=== PATIENT | male | born 1950 | race Caucasian/White ===

== ENCOUNTER 2021-09-27 12:02 | Day surgery (SDC) | payer MEDICARE, MEDICAID ==
[2021-09-21 16:01] LABS: BASOPHILS % (AUTO) 0.4 % (0-1); EOSINOPHILS # (AUTO) 0.2 X10'3 (0-0.9); EOSINOPHILS % (AUTO) 3.2 % (0-6); HEMATOCRIT 44.1 % (42.0-52.0); HEMOGLOBIN 15.2 g/dl (14.0-17.9); LYMPHOCYTES # (AUTO) 2.1 X10'3 (1.1-4.8); LYMPHOCYTES % (AUTO) 31.2 % (21-51); MEAN CORPUSCULAR HEMOGLOBIN 30.8 PG (27.0-31.0); MEAN CORPUSCULAR HGB CONC 34.4 g/dL (33.0-36.5); MEAN CORPUSCULAR VOLUME 89.4 FL (78-98); MEAN PLATELET VOLUME 8.8 FL (7.4-10.4); MONOCYTES # (AUTO) 0.6 X10'3 (0-0.9); MONOCYTES % (AUTO) 9.1 % (2-12); NEUTROPHILS # (AUTO) 3.8 X10'3 (1.8-7.7); NEUTROPHILS % (AUTO) 56.1 % (42-75); PLATELET COUNT 257 X10'3 (140-440); RED BLOOD COUNT 4.93 X10'6 (4.70-6.10); RED CELL DISTRIBUTION WIDTH 12.9 % (11.5-14.5); WHITE BLOOD COUNT 6.8 X10'3 (4.5-11.0)
[2021-09-21 16:12] LABS: ALBUMIN 3.6 G/DL (3.4-5.0); ANION GAP 9 (8-16); BLOOD UREA NITROGEN 25 MG/DL (7-18); BUN/CREATININE RATIO 22.5 (5.4-32.0); CALCIUM 8.8 MG/DL (8.5-10.1); CHLORIDE 108 MMOL/L (99-107); CREATININE 1.11 MG/DL (0.60-1.10); GLUCOSE 105 MG/DL (70-104); POTASSIUM 4.2 MMOL/L (3.5-5.1); SODIUM 143 MMOL/L (135-145); TOTAL CARBON DIOXIDE 26.4 MMOL/L (24-32); eGFR 65 ML/MIN
[2021-09-21 16:13] LABS: APTT 24 SECONDS (22-32)
[~2021-09-27] VITALS: Ht 177.8 cm; Wt 109.6 kg
[2021-09-27] MEDS ORDERED: LORazepam 0.5 MG tablet PO PRN (12:35)
[2021-09-27] MEDS ORDERED: normal saline 1,000 ML IV SCH (12:35)
[2021-09-27] MEDS ORDERED: diphenhydrAMINE 25mg capsule PO PRN (12:35)
[2021-09-27 12:47] VITALS: BP 135/88
[2021-09-27] MEDS ORDERED: ATOR80TA PO (13:17)
[2021-09-27] MEDS ORDERED: SILD100T PO (13:17)
[2021-09-27] MEDS ORDERED: CLOP75TA34 PO (13:17)
[2021-09-27] MEDS ORDERED: METO50TA7 PO (13:17)
[2021-09-27] MEDS ORDERED: ISOS120T13 PO (13:17)
[2021-09-27] MEDS ORDERED: NITR0.4T51 SL (13:17)
[2021-09-27] MEDS ORDERED: ASPI-1265 PO (13:17)
[2021-09-27] MEDS ORDERED: LISI5TAB22 PO (13:17)
[2021-09-27] MEDS ORDERED: LIDOcaine/PRILOcaine 5gm cream TP ONE (13:20)
[2021-09-27] MEDS ORDERED: verapamil 2.5 mg/ml inj IV ONE (13:33)
[2021-09-27] MEDS ORDERED: nitroGLYCERIN-Tridil 50MG/D5W 250 ML IV ONE (13:33)
[2021-09-27] MEDS ORDERED: fentaNYL/PF 50MCG/1 ML 2ML syringe ONE (13:33)
[2021-09-27] MEDS ORDERED: midazolam 1 mg/ML 2ml injection ONE (13:33)
[2021-09-27] MEDS ORDERED: heparin 1,000unit/ml 10ml vial 10 ML ONE (13:34)
[2021-09-27] MEDS ORDERED: LIDOcaine 1% (10mg/ml)w/preservative injection 20ml MDV ONE (13:34)
[2021-09-27] MEDS ORDERED: iohexol 350 MG/ML 50ML vial IV ONE (13:34)
[2021-09-27] MEDS ORDERED: iohexol 350MG/ML 100ml bottle IV ONE (13:35)
[2021-09-27 14:58] VITALS: BP 141/82
[2021-09-27 15:12] VITALS: BP 130/74
[2021-09-27 15:27] VITALS: BP 135/75
[2021-09-27] MEDS ORDERED: HYDROcodone/acetaminophen 10/325mg tab PO PRN (15:40)
[2021-09-27] MEDS ORDERED: ondansetron/PF 4mg/2ml inj IV PRN (15:40)
[2021-09-27] MEDS ORDERED: OXAZEpam 15mg capsule PO PRN (15:40)
[2021-09-27] MEDS ORDERED: proCHLORperazine 10 MG/2 ml inj IV PRN (15:40)
[2021-09-27] MEDS ORDERED: HYDROcodone/acetaminophen 5mg/325mg tablet PO PRN (15:40)
[2021-09-27 15:43] VITALS: BP 138/74
[2021-09-27 16:12] VITALS: BP 131/81
== END 2021-09-27 16:55 | disposition home or self-care (01) ==
LOC: SSTAY O 12:02
PROVIDERS: ATTEND Internal Medicine Interventional Cardiology
DX: R94.39 Abnormal result of other cardiovascular function study (principal); I25.110 Atherosclerotic heart disease of native coronary artery with unstable angina pectoris; I11.0 Hypertensive heart disease with heart failure; I50.22 Chronic systolic (congestive) heart failure; I25.5 Ischemic cardiomyopathy; E78.5 Hyperlipidemia, unspecified; Z79.899 Other long term (current) drug therapy; Z79.01 Long term (current) use of anticoagulants; Z95.5 Presence of coronary angioplasty implant and graft; Z87.891 Personal history of nicotine dependence
CPT/HCPCS: 36415; 80048; 85025; 85610; 85730; 93005; 93458; C1769; C1894; J1644; J2001; J2250; J3010; J7030; Q0163; Q9967; 99152; 99153; A4620; A6258; J3490

== ENCOUNTER 2022-02-24 21:33 | Emergency (ER) | payer MEDICARE, MEDICAID ==
[~2022-02-24] VITALS: Ht 180.3 cm; Wt 104.5 kg
[~2022-02-24 21:33] MED LIST: ASPI-1265 PO; ATOR80TA PO; HYDR-3972 PO; LISI5TAB22 PO; METO50TA7 PO; SILD100T PO
[2022-02-24 21:38] VITALS: BP 139/78
[2022-02-24] MEDS ORDERED: magnesium hydroxide 30ml (MOM) UD suspension PO ONE (23:10)
[2022-02-24] MEDS ORDERED: lactulose 20gm/30ml cup PO ONE (23:10)
[2022-02-24 23:37] LABS: ALANINE AMINOTRANSFERASE 38 U/L (12-78); ALBUMIN 3.4 G/DL (3.4-5.0); ALBUMIN/GLOBULIN RATIO 0.9 (1.1-1.5); ALKALINE PHOSPHATASE 87 IU/L (46-116); ANION GAP 11 (8-16); ASPARTATE AMINO TRANSFERASE 23 U/L (10-37); BILIRUBIN,TOTAL 0.7 MG/DL (0.1-1.0); BLOOD UREA NITROGEN 23 MG/DL (7-18); BUN/CREATININE RATIO 23.2 (5.4-32.0); CALCIUM 8.5 MG/DL (8.5-10.1); CHLORIDE 102 MMOL/L (99-107); CREATININE 0.99 MG/DL (0.60-1.10); GLUCOSE 129 MG/DL (70-104); POTASSIUM 4.5 MMOL/L (3.5-5.1); SODIUM 137 MMOL/L (135-145); TOTAL CARBON DIOXIDE 24.1 MMOL/L (24-32); TOTAL PROTEIN 7.3 G/DL (6.4-8.2); eGFR 75 ML/MIN
[2022-02-24] MEDS: normal saline 1000ML IV soln IVB ONE ×2 (23:58)
[2022-02-25 00:25] LABS: PLATELET ESTIMATE NORMAL; TOTAL CELLS COUNTED 100
[2022-02-25 00:38] LABS: BASOPHILS # (AUTO) 0.1 X10'3 (0-0.2); BASOPHILS % (AUTO) 0.4 % (0-1); EOSINOPHILS % (AUTO) 0.2 % (0-6); HEMATOCRIT 42.9 % (42.0-52.0); HEMOGLOBIN 14.4 g/dl (14.0-17.9); LYMPHOCYTES # (AUTO) 0.8 X10'3 (1.1-4.8); LYMPHOCYTES % (AUTO) 5.3 % (21-51); MEAN CORPUSCULAR HEMOGLOBIN 29.7 PG (27.0-31.0); MEAN CORPUSCULAR HGB CONC 33.7 g/dL (33.0-36.5); MEAN CORPUSCULAR VOLUME 88.3 FL (78-98); MEAN PLATELET VOLUME 8.4 FL (7.4-10.4); MONOCYTES # (AUTO) 0.6 X10'3 (0-0.9); NEUTROPHILS # (AUTO) 13.6 X10'3 (1.8-7.7); NEUTROPHILS % (AUTO) 90.1 % (42-75); PLATELET COUNT 369 X10'3 (140-440); RED BLOOD COUNT 4.86 X10'6 (4.70-6.10); RED CELL DISTRIBUTION WIDTH 13.8 % (11.5-14.5)
[2022-02-25] MEDS ORDERED: ketorolac trometh. 30mg/ml inj. IV ONE (01:00)
[2022-02-25] MEDS ORDERED: iohexol 300mg/ml 100ml inj. ONE (01:08)
[2022-02-25] MEDS ORDERED: piperacillin/tazo 3.375gm/50ml 50 ML IV ONE (01:25)
[2022-02-25] MEDS: normal saline 1000ML IV soln IVB ONE ×2 (01:35→01:59)
[2022-02-25] MEDS ORDERED: AMOX-580 PO (02:32)
[2022-02-25] MEDS ORDERED: ONDA4TAB12 PO (02:32)
== END 2022-02-25 02:55 | disposition home or self-care (01) ==
LOC: ER 21:34
DX: K57.92 Diverticulitis of intestine, part unspecified, without perforation or abscess without bleeding (principal); K59.00 Constipation, unspecified; I51.9 Heart disease, unspecified
CPT/HCPCS: 36415; 74177; 80053; 84145; 85007; 85025; 96365; 96375; 99285; J1885; J2543; J7030; Q9967; 96361

== ENCOUNTER 2022-09-25 16:23 | Emergency (ER) | payer MEDICARE, MEDICAID ==
[~2022-09-25] VITALS: Ht 177.8 cm; Wt 109.1 kg
[~2022-09-25 16:23] MED LIST changes: +ONDA4TAB12 PO
[2022-09-25 16:47] LABS: BASOPHILS % (AUTO) 0.6 % (0-1); EOSINOPHILS # (AUTO) 0.3 X10'3 (0-0.9); EOSINOPHILS % (AUTO) 3.9 % (0-6); HEMATOCRIT 51.3 % (42.0-52.0); HEMOGLOBIN 17.4 g/dl (14.0-17.9); LYMPHOCYTES # (AUTO) 2.1 X10'3 (1.1-4.8); MEAN CORPUSCULAR HEMOGLOBIN 31.2 PG (27.0-31.0); MEAN CORPUSCULAR VOLUME 91.8 FL (78-98); MEAN PLATELET VOLUME 9.2 FL (7.4-10.4); MONOCYTES # (AUTO) 0.7 X10'3 (0-0.9); MONOCYTES % (AUTO) 9.3 % (2-12); NEUTROPHILS # (AUTO) 4.7 X10'3 (1.8-7.7); NEUTROPHILS % (AUTO) 59.2 % (42-75); PLATELET COUNT 196 X10'3 (140-440); RED BLOOD COUNT 5.59 X10'6 (4.70-6.10); WHITE BLOOD COUNT 7.9 X10'3 (4.5-11.0)
[2022-09-25 17:01] LABS: ALANINE AMINOTRANSFERASE 39 U/L (12-78); ALBUMIN 3.7 G/DL (3.4-5.0); ALKALINE PHOSPHATASE 93 IU/L (46-116); ANION GAP 8 (8-16); ASPARTATE AMINO TRANSFERASE 25 U/L (10-37); BILIRUBIN,TOTAL 0.8 MG/DL (0.1-1.0); BLOOD UREA NITROGEN 20 MG/DL (7-18); CALCIUM 9.3 MG/DL (8.5-10.1); CHLORIDE 104 MMOL/L (99-107); GLUCOSE 112 MG/DL (70-104); POTASSIUM 4.2 MMOL/L (3.5-5.1); SODIUM 138 MMOL/L (135-145); TOTAL CARBON DIOXIDE 25.7 MMOL/L (24-32); TOTAL PROTEIN 7.4 G/DL (6.4-8.2); eGFR 73 ML/MIN
[2022-09-25] MEDS ORDERED: furosemide 20MG tablet PO ONE (20:50)
[2022-09-25] MEDS ORDERED: cloNIDine 0.1 mg tablet PO ONE (21:20)
[2022-09-25] MEDS ORDERED: POTA-192 PO (22:17)
[2022-09-25] MEDS ORDERED: FURO-150 PO (22:17)
[2022-09-25 22:31] VITALS: BP 159/97
== END 2022-09-25 22:33 | disposition home or self-care (01) ==
LOC: ER 16:24
DX: I11.0 Hypertensive heart disease with heart failure (principal); I50.9 Heart failure, unspecified
CPT/HCPCS: 36415; 71045; 80053; 83880; 84484; 85025; 93005; 99285

== ENCOUNTER 2023-10-01 08:46 | Emergency (ER) | payer MEDICARE, MEDICAID ==
[~2023-10-01] VITALS: Ht 177.8 cm; Wt 103.0 kg
[2023-10-01] MEDS ORDERED: diphenhydrAMINE 50 mg/ml inj IM ONE (09:55)
[2023-10-01] MEDS ORDERED: ketorolac tromethamine 15mg/ml inj. IM ONE (09:55)
[2023-10-01 10:13] VITALS: BP 138/86; PULSE 78; RESP 16; TEMP 97.9; O2SAT 95
[2023-10-01] MEDS ORDERED: MECL-302 PO (10:42)
[2023-10-01] MEDS ORDERED: CYCL-394 PO (10:42)
== END 2023-10-01 11:04 | disposition home or self-care (01) ==
LOC: ER 08:47
DX: G44.209 Tension-type headache, unspecified, not intractable (principal)
CPT/HCPCS: 93005; 96372; 99284; J1200; J1885